=== PATIENT | female | born 1980 | race Hispanic/Latino ===

== ENCOUNTER 2019-07-27 08:09 | Emergency (ER) | payer SELFPAY, OTHER ==
--- NOTE | 2019-07-27 08:46 | RAD ---
RADIOGRAPH CHEST 1 VIEW: DATE: 07/27/2019 HISTORY: 39-year-old female exposed to COVID-19 virus COMPARISON: 02/24/2013 FINDINGS: There are no airspace densities, pulmonary edema, pneumothorax, or cardiomegaly. The lateral costophr enic angles are sharp. Multiple old, significantly displaced, left lateral upper rib fracture deformities. No interval change overall. IMPRESSION: 1. No acute cardiopulmonary findings. 2. Multiple old left rib fracture deformities.
[2019-07-27 18:06] LABS: SARS-CoV-2 MS2 Positive; SARS-CoV-2 N Gene Positive; SARS-CoV-2 S Gene Positive; SARS-CoV-2 orf1ab Positive
== END 2019-07-27 09:35 | disposition home or self-care (01) ==
LOC: ERS 08:09
DX: U07.1 COVID-19 (principal); R43.8 Other disturbances of smell and taste; M79.10 Myalgia, unspecified site; F32.9 Major depressive disorder, single episode, unspecified
CPT/HCPCS: 71045; 87635; U0003

== ENCOUNTER 2019-10-23 14:17 | Emergency (ER) | payer SELFPAY ==
[2019-10-23 15:15] LABS: #Lymphocytes 1.6 thou/uL (1.20-3.40); #Monocytes 0.4 thou/uL (0.11-0.59); #Neutrophils 5.6 thou/uL (1.40-6.50); %Basophils 0.3 % (0.0-1.0); %Eosinophils 0.3 % (0.0-10.0); %Lymphocytes 20.8 % (21.0-51.0); %Monocytes 4.7 % (0.0-10.0); %Neutrophils 73.9 % (42.0-75.0); Mean Corpuscular HGB CONC 35.3 g/dL (32.0-36.0); Mean Corpuscular Hemoglobin 34.9 pg (27.0-31.0); Mean Platelet Volume 8.6 fL (7.4-10.4); Platelet Count 258 thou/uL (130-400); RBC Distribution Width 11.4 % (11.5-14.5); Red Blood Cell (RBC) Count 4.02 mill/uL (4.20-5.40); White Blood Cell (WBC) Count 7.6 thou/uL (4.8-10.8)
--- NOTE | 2019-10-23 15:29 | RAD ---
PORTABLE CHEST: Date: 10/23/2019 HISTORY: Chest pain. COMPARISON: 07/27/2019. FINDINGS: Deformity of left chest from old rib fractures again noted. The lungs are clear and unchanged in appe arance. Heart and mediastinum unremarkable. IMPRESSION: No acute process or interval change noted. POS: AH
[2019-10-23 15:34] LABS: ALT (SGPT) 13 U/L (8-55); AST (SGOT) 17 U/L (5-34); Alkaline Phosphatase 102 U/L (40-110); Anion Gap 14 mmol/L (10-20); BUN (Urea Nitrogen) 12 mg/dL (7.0-18.7); Bilirubin, Total 0.4 mg/dL (0.2-1.2); CK (CPK) 78 U/L (29-168); Calc. Creatinine Clearance 0 mL/min (70-130); Calcium 8.8 mg/dL (7.8-10.44); Carbon Dioxide 25 mmol/L (22-29); Chloride 105 mmol/L (98-107); Estimated GFR-MDRD 88; Globulin 2.9 g/dL (2.4-3.5); Glucose 117 mg/dL (70-105); Potassium 3.2 mmol/L (3.5-5.1); Protein, Total 6.9 g/dL (6.0-8.3); Sodium 141 mmol/L (136-145)
[2019-10-23] MEDS ORDERED: Ketorolac Tromethamine 30 MG/ML VIAL ONE ×2 (15:53→15:56)
[2019-10-23] MEDS ORDERED: Acetaminophen 500 MG TAB ONE (15:53)
== END 2019-10-23 16:07 | disposition home or self-care (01) ==
LOC: ERS 14:17
DX: M94.0 Chondrocostal junction syndrome [Tietze] (principal); F43.0 Acute stress reaction; F41.9 Anxiety disorder, unspecified; R07.9 Chest pain, unspecified; R09.1 Pleurisy; Z79.899 Other long term (current) drug therapy
CPT/HCPCS: 36415; 71045; 80053; 82550; 84484; 85025; 93005; 96372; J1885

== ENCOUNTER 2020-03-25 17:11 | Emergency (ER) | payer OTHER, SELFPAY ==
[2020-03-25 17:51] LABS: #Lymphocytes 1.9 thou/uL (1.20-3.40); #Monocytes 0.3 thou/uL (0.11-0.59); #Neutrophils 5.4 thou/uL (1.40-6.50); %Basophils 0.4 % (0.0-1.0); %Eosinophils 0.3 % (0.0-10.0); %Lymphocytes 24.7 % (21.0-51.0); %Monocytes 4.2 % (0.0-10.0); %Neutrophils 70.4 % (42.0-75.0); Hemoglobin 13.7 g/dL (12.0-16.0); Mean Corpuscular HGB CONC 33.6 g/dL (32.0-36.0); Mean Corpuscular Hemoglobin 33.4 pg (27.0-31.0); Mean Corpuscular Volume 99.3 fL (78.0-98.0); Mean Platelet Volume 8.5 fL (7.4-10.4); Platelet Count 263 thou/uL (130-400); RBC Distribution Width 11.2 % (11.5-14.5); Red Blood Cell (RBC) Count 4.09 mill/uL (4.20-5.40); White Blood Cell (WBC) Count 7.7 thou/uL (4.8-10.8)
[2020-03-25 18:03] LABS: ALT (SGPT) 12 U/L (8-55); AST (SGOT) 14 U/L (5-34); Albumin 4.1 g/dL (3.5-5.0); Alkaline Phosphatase 114 U/L (40-110); Anion Gap 11 mmol/L (10-20); BUN (Urea Nitrogen) 13 mg/dL (7.0-18.7); Bilirubin, Total 0.2 mg/dL (0.2-1.2); Calc. Creatinine Clearance 0 mL/min (70-130); Calcium 8.8 mg/dL (7.8-10.44); Carbon Dioxide 26 mmol/L (22-29); Chloride 108 mmol/L (98-107); Glucose 114 mg/dL (70-105); Potassium 3.8 mmol/L (3.5-5.1); Protein, Total 7.1 g/dL (6.0-8.3); Sodium 141 mmol/L (136-145)
--- NOTE | 2020-03-25 18:42 | RAD ---
PORTABLE CHEST: History: Chest pain Comparison: 10-23-2019 FINDINGS: Heart size and mediastinum within normal limits. The lungs are clear of infiltrates. Old left rib fra ctures are seen. IMPRESSION: No active intrathoracic disease. POS: [facility]
--- NOTE | 2020-03-30 16:15 | EKG ---
Test Reason : Blood Pressure : / mmHG Vent. Rate : 062 BPM Atrial Rate : 062 BPM P-R Int : 152 ms QRS Dur : 080 ms QT Int : 398 ms P-R-T Axes : 063 -04 023 degrees QTc Int : 403 ms Normal sinus rhythm with sinus arrhythmia Normal ECG Confirmed by RUBY SIFUENTES DO ([id number]), editor newspaper PAMELA ROMERO ([id number]) on 03/30/2020 4:15:45 PM Referred By: Confirmed By:RUBY SIFUENTES DO
== END 2020-03-25 20:30 | disposition home or self-care (01) ==
LOC: ERS 17:11
DX: R07.89 Other chest pain (principal)
CPT/HCPCS: 36415; 71045; 80053; 84484; 85025; 93005

== ENCOUNTER 2020-06-24 14:52 | Emergency (ER) | payer OTHER, SELFPAY ==
[~2020-06-24 14:52] MED LIST: Iopamidol-370 76% 500 ML 1 ML ONE
[2020-06-24 18:00] LABS: #Lymphocytes 2.5 thou/uL (1.20-3.40); #Monocytes 0.5 thou/uL (0.11-0.59); #Neutrophils 4.7 thou/uL (1.40-6.50); %Basophils 0.5 % (0.0-1.0); %Eosinophils 0.2 % (0.0-10.0); %Lymphocytes 32.5 % (21.0-51.0); %Neutrophils 60.8 % (42.0-75.0); Hemoglobin 13.6 g/dL (12.0-16.0); Mean Corpuscular HGB CONC 33.5 g/dL (32.0-36.0); Mean Corpuscular Hemoglobin 33.1 pg (27.0-31.0); Mean Corpuscular Volume 98.7 fL (78.0-98.0); Mean Platelet Volume 8.6 fL (7.4-10.4); Platelet Count 276 thou/uL (130-400); RBC Distribution Width 11.2 % (11.5-14.5); White Blood Cell (WBC) Count 7.8 thou/uL (4.8-10.8)
[2020-06-24 18:26] LABS: ALT (SGPT) 19 U/L (8-55); AST (SGOT) 23 U/L (5-34); Albumin 4.1 g/dL (3.5-5.0); Alkaline Phosphatase 114 U/L (40-110); Anion Gap 12 mmol/L (10-20); BUN (Urea Nitrogen) 13 mg/dL (7.0-18.7); Bilirubin, Total 0.3 mg/dL (0.2-1.2); Calc. Creatinine Clearance 0 mL/min (70-130); Calcium 9.2 mg/dL (7.8-10.44); Carbon Dioxide 27 mmol/L (22-29); Chloride 105 mmol/L (98-107); Globulin 3.5 g/dL (2.4-3.5); Glucose 100 mg/dL (70-105); Potassium 3.9 mmol/L (3.5-5.1); Protein, Total 7.6 g/dL (6.0-8.3); Sodium 140 mmol/L (136-145)
[2020-06-25 05:25] LABS: SARS-CoV-2 PCR by NAA Not Detected (NotDetected)
== END 2020-06-24 23:02 | disposition home or self-care (01) ==
LOC: ERS 14:52
DX: R07.89 Other chest pain (principal)
CPT/HCPCS: 36415; 71045; 71275; 80053; 84484; 85025; 85379; 87635; 93005; Q9967; U0003; U0005

== ENCOUNTER 2021-09-10 17:41 | Emergency (ER) | payer SELFPAY ==
[2021-09-10] MEDS ORDERED: Ketorolac Tromethamine 30 MG/ML VIAL ONE (19:33)
[2021-09-10 19:58] LABS: Bilirubin Negative (Negative); Blood, Urine Negative (Negative); Clarity Clear (Clear); Glucose, Urine (Dipstick) Normal (Negative); Ketone, Urine Negative (Negative); Leukocyte Negative Leu/uL (Negative); Nitrite Negative (Negative); Protein, Urine (Dipstick) 20 mg/dL (Neg-Trace); Specific Gravity, Urine 1.034 (1.002-1.036)
[2021-09-10 20:00] LABS: Pregnancy Test - Urine (BHCG) Negative (Negative); Pregu Control Background? CLEAR/WHITE (CLR/WHITE); Pregu Control Bar Appear? YES (CONTROL BAR); Specific Gravity 1.034 (1.002-1.036)
== END 2021-09-10 20:37 | disposition home or self-care (01) ==
LOC: ERS 17:41
DX: M54.50 Low back pain, unspecified (principal)
CPT/HCPCS: 81003; 81025; 96372; 99283; J1885

== ENCOUNTER 2021-12-25 16:22 | Emergency (ER) | payer SELFPAY | END 2021-12-25 19:30 | disposition home or self-care (01) | LOC: ERS 16:22 | DX: M54.50 Low back pain, unspecified (principal); G89.29 Other chronic pain | CPT/HCPCS: 99283 ==

== ENCOUNTER 2022-02-26 14:52 | Emergency (ER) | payer SELFPAY ==
[2022-02-26 15:36] LABS: #Lymphocytes 3.5 thou/uL (1.20-3.40); #Monocytes 0.5 thou/uL (0.11-0.59); #Neutrophils 4.4 thou/uL (1.40-6.50); %Basophils 0.2 % (0.0-1.0); %Eosinophils 0.2 % (0.0-10.0); %Lymphocytes 41.7 % (21.0-51.0); %Monocytes 5.6 % (0.0-10.0); %Neutrophils 52.3 % (42.0-75.0); Hemoglobin 13.8 g/dL (12.0-16.0); Mean Corpuscular HGB CONC 34.1 g/dL (32.0-36.0); Mean Corpuscular Hemoglobin 32.5 pg (27.0-31.0); Mean Corpuscular Volume 95.3 fl (78.0-98.0); Mean Platelet Volume 7.7 fL (7.4-10.4); Platelet Count 333 10x3/uL (130-400); RBC Distribution Width 11.6 % (11.5-14.5); Red Blood Cell (RBC) Count 4.26 mill/uL (4.20-5.40); White Blood Cell (WBC) Count 8.4 10x3/uL (4.8-10.8)
[2022-02-26 15:57] LABS: ALT (SGPT) 49 U/L (8-55); AST (SGOT) 33 U/L (5-34); Albumin 3.1 g/dL (3.5-5.0); Alkaline Phosphatase 86 U/L (40-110); Anion Gap 12 mmol/L (10-20); BUN (Urea Nitrogen) 10 mg/dL (7.0-18.7); Bilirubin, Total Less than 0.2 mg/dL (0.2-1.2); Calc. Creatinine Clearance 0 mL/min (70-130); Calcium 7.6 mg/dL (7.8-10.44); Carbon Dioxide 21 mmol/L (22-29); Chloride 108 mmol/L (98-107); Estimated GFR 114; Globulin 2.5 g/dL (2.4-3.5); Glucose 116 mg/dL (70-105); Potassium 3.6 mmol/L (3.5-5.1); Protein, Total 5.6 g/dL (6.0-8.3); Sodium 137 mmol/L (136-145)
[2022-02-26 16:29] LABS: Bilirubin Negative (Negative); Blood, Urine Negative (Negative); Clarity Turbid (Clear); Glucose, Urine (Dipstick) Normal (Negative); Ketone, Urine Negative (Negative); Leukocyte 500 Leu/uL (Negative); Nitrite Negative (Negative); Protein, Urine (Dipstick) 10 mg/dL (Neg-Trace); Urobilinogen Normal mg/dL (Less than 2); pH, Urine 5.5 (5.0-9.0)
[2022-02-26 16:31] LABS: Pregnancy Test - Urine (BHCG) Negative (Negative); Pregu Control Background? CLEAR/WHITE (CLR/WHITE); Pregu Control Bar Appear? YES (CONTROL BAR)
[2022-02-26 16:44] LABS: Bacteria/HPF 1+ HPF (None Seen); RBC/HPF 0-3 HPF (0-3)
[2022-02-26] MEDS ORDERED: diphenhydrAMINE 50 MG/ML VIAL ONE (16:44)
[2022-02-26] MEDS ORDERED: Meclizine HCl 25 MG TAB ONE (16:44)
== END 2022-02-26 18:17 | disposition home or self-care (01) ==
LOC: ERS 14:52
DX: R42 Dizziness and giddiness (principal); N39.0 Urinary tract infection, site not specified
CPT/HCPCS: 36415; 80053; 81003; 81015; 81025; 85025; 87086; 93005; 96374; J1200

== ENCOUNTER 2022-03-10 12:26 | Emergency (ER) | payer SELFPAY ==
[2022-03-10 13:19] LABS: BHCG - Serum Negative (NEGATIVE); Pregs Control Background? CLEAR/WHITE (CLR/WHITE); Pregs Control Bar Appear? YES (CONTROL BAR)
[2022-03-10 14:12] LABS: ALT (SGPT) 35 U/L (8-55); AST (SGOT) 28 U/L (5-34); Albumin 3.3 g/dL (3.5-5.0); Alkaline Phosphatase 80 U/L (40-110); Anion Gap 11 mmol/L (10-20); BUN (Urea Nitrogen) 10 mg/dL (7.0-18.7); Bilirubin, Total 0.3 mg/dL (0.2-1.2); Calc. Creatinine Clearance 0 mL/min (70-130); Calcium 8.3 mg/dL (7.8-10.44); Carbon Dioxide 23 mmol/L (22-29); Chloride 110 mmol/L (98-107); Estimated GFR 115; Globulin 2.2 g/dL (2.4-3.5); Glucose 113 mg/dL (70-105); Lipase 43 U/L (8-78); Potassium 3.8 mmol/L (3.5-5.1); Protein, Total 5.5 g/dL (6.0-8.3); Sodium 140 mmol/L (136-145)
[2022-03-10 16:02] LABS: #Lymphocytes 2.4 thou/uL (1.20-3.40); #Monocytes 0.3 thou/uL (0.11-0.59); #Neutrophils 5.2 thou/uL (1.40-6.50); %Basophils 0.1 % (0.0-1.0); %Eosinophils 0.6 % (0.0-10.0); %Lymphocytes 30.5 % (21.0-51.0); %Monocytes 4.2 % (0.0-10.0); %Neutrophils 64.6 % (42.0-75.0); Hemoglobin 12.7 g/dL (12.0-16.0); Mean Corpuscular HGB CONC 33.1 g/dL (32.0-36.0); Mean Corpuscular Hemoglobin 31.3 pg (27.0-31.0); Mean Corpuscular Volume 94.6 fl (78.0-98.0); Mean Platelet Volume 8.5 fL (7.4-10.4); Platelet Count 263 10x3/uL (130-400); RBC Distribution Width 11.7 % (11.5-14.5); Red Blood Cell (RBC) Count 4.05 mill/uL (4.20-5.40)
[2022-03-10 16:13] LABS: Troponin I Less than 0.010 ng/mL (< 0.028)
[2022-03-10] MEDS ORDERED: Ketorolac Tromethamine 30 MG/ML VIAL ONE (16:15)
== END 2022-03-10 17:41 | disposition home or self-care (01) ==
LOC: ERS 12:26
DX: R07.82 Intercostal pain (principal)
CPT/HCPCS: 36415; 71045; 80053; 83690; 84443; 84484; 84703; 85025; 93005; 94760; 96372; J1885

== ENCOUNTER 2022-11-10 15:16 | Emergency (ER) | payer SELFPAY ==
[2022-11-10] MEDS ORDERED: Cyclobenzaprine 10 MG TAB ONE (17:19)
[2022-11-10 17:22] LABS: #Monocytes 0.5 thou/uL (0.11-0.59); #Neutrophils 5.1 thou/uL (1.40-6.50); %Basophils 0.4 % (0.0-1.0); %Eosinophils 0.3 % (0.0-10.0); %Lymphocytes 28.4 % (21.0-51.0); %Monocytes 6.2 % (0.0-10.0); %Neutrophils 64.4 % (42.0-75.0); Hematocrit 40.9 % (36.0-47.0); Hemoglobin 13.5 g/dL (12.0-16.0); Mean Corpuscular Hemoglobin 30.3 pg (27.0-31.0); Mean Corpuscular Volume 91.9 fl (78.0-98.0); Mean Platelet Volume 10.3 fL (7.4-10.4); Platelet Count 314 10x3/uL (130-400); RBC Distribution Width 13.3 % (11.5-14.5); Red Blood Cell (RBC) Count 4.45 mill/uL (4.20-5.40); White Blood Cell (WBC) Count 7.9 10x3/uL (4.8-10.8)
[2022-11-10 17:28] LABS: Bacteria/HPF None Seen HPF (None Seen); Bilirubin Negative (Negative); Blood, Urine Negative (Negative); CAUTI Indications for Culture Dysuria,urgency,freq; Clarity Clear (Clear); Glucose, Urine (Dipstick) Normal (Negative); Ketone, Urine Trace mg/dL (Negative); Leukocyte Negative Leu/uL (Negative); Nitrite Negative (Negative); Protein, Urine (Dipstick) 10 mg/dL (Neg-Trace); RBC/HPF 0-3 HPF (0-3); Specific Gravity, Urine 1.033 (1.002-1.036); Squamous Epithelial 0-3 HPF (0-3); WBC/HPF 0-3 HPF (0-3); pH, Urine 5.5 (5.0-9.0)
[2022-11-10 17:30] LABS: Urine Culture Reflex No No
[2022-11-10 17:44] LABS: ALT (SGPT) 12 U/L (8-55); AST (SGOT) 14 U/L (5-34); Albumin 3.3 g/dL (3.5-5.0); Alkaline Phosphatase 79 U/L (40-110); Anion Gap 10 mmol/L (10-20); BUN (Urea Nitrogen) 14 mg/dL (7.0-18.7); Bilirubin, Total 0.2 mg/dL (0.2-1.2); Calc. Creatinine Clearance 0 mL/min (70-130); Calcium 8.2 mg/dL (7.8-10.44); Carbon Dioxide 23 mmol/L (22-29); Chloride 108 mmol/L (98-107); Estimated GFR 64; Globulin 2.3 g/dL (2.4-3.5); Glucose 118 mg/dL (70-105); Potassium 3.7 mmol/L (3.5-5.1); Protein, Total 5.6 g/dL (6.0-8.3); Sodium 137 mmol/L (136-145)
== END 2022-11-10 18:15 | disposition home or self-care (01) ==
LOC: ERS 15:16
DX: K62.5 Hemorrhage of anus and rectum (principal); M54.50 Low back pain, unspecified; G89.29 Other chronic pain
CPT/HCPCS: 36415; 80053; 81001; 85025; 99284

== ENCOUNTER 2023-12-03 16:26 | Emergency (ER) | payer OTHER | END 2023-12-03 17:57 | disposition home or self-care (01) | LOC: ERS 16:26 | DX: M62.830 Muscle spasm of back (principal) | CPT/HCPCS: 99282 ==

== ENCOUNTER 2024-11-07 08:30 | Emergency (ER) | payer OTHER, SELFPAY ==
[2024-11-07] MEDS ORDERED: Acetaminophen 500 MG TAB ONE (09:18)
== END 2024-11-07 10:05 | disposition home or self-care (01) ==
LOC: ERS 08:30
DX: J06.9 Acute upper respiratory infection, unspecified (principal)
CPT/HCPCS: 87428; 99283